=== PATIENT | female | born 1995 | race Caucasian/White ===

== ENCOUNTER 2017-06-30 09:17 | Emergency (ER) | payer BC ==
[~2017-06-30] VITALS: Ht 157.5 cm; Wt 68.0 kg
[2017-06-30 09:18] VITALS: BP 130/83; PULSE 105; RESP 18; TEMP 99.5; O2SAT 97
[2017-06-30] MEDS ORDERED: FLUT1SPR5 EACH NARE (09:38)
--- NOTE | 2017-06-30 09:58 | PD ---
HPI Chief Complaint: Cold / Flu Symptoms Time Seen by Provider: 09:35 Travel History International Travel<30 days: No Contact w/Intl Traveler<30days: No Traveled to known affect area: No History of Present Illness HPI This is a 22-year-old female here with flulike illness times one day. She is reporting body aches, fever, sore throat, cough. Symptoms severity is moderate. No aggravating factors. Slightly improved with OTC Tylenol. PFSH Past Medical History Medical History: Denies Significant Hx Respiratory: Yes (allergies) Integumentary: Yes Tetanus Vaccination: < 5 Years ?: Not LMP: MAY 19, 2017 Past Surgical History Tonsillectomy: Yes Social History Alcohol Use: No Tobacco Use: No Substance Use: No Allergies-Medications (Allergen,Severity, Reaction): Coded Allergies: Sulfa (Sulfonamide Antibiotics) (Verified Allergy, Severe, Nausea/Vomiting , 06/30/17) amoxicillin (Verified Allergy, Severe, Nausea/Vomiting, 06/30/17) azithromycin (Verified Allergy, Severe, Nausea/Vomiting, 06/30/17) cefaclor (Verified Allergy, Severe, Nausea/Vomiting, 06/30/17) cefuroxime (Verified Allergy, Severe, Nausea/Vomiting, 06/30/17) clavulanic acid (Verified Allergy, Severe, Nausea/Vomiting, 06/30/17) sulfamethoxazole (Verified Allergy, Severe, Nausea/Vomiting, 06/30/17) trimethoprim (Verified Allergy, Severe, Nausea/Vomiting, 06/30/17) Reported Meds & Prescriptions Reported Meds & Active Scripts Active Tessalon Perles (Benzonatate) 100 Mg Cap 200 Mg PO TID PRN Proair Hfa 8.5 GM Inh (Albuterol Sulfate) 90 Mcg/Act Aer 2 Puff INH Q4-6H PRN 108 mcg/actuation Prednisone 20 Mg Tab 40 Mg PO DAILY Take 40 mg (2 tablets) daily for 5 days Tamiflu (Oseltamivir Phosphate) 75 Mg Cap 75 Mg PO BID 5 Days Reported Flonase Nasal [place] (Fluticasone Nasal [place]) 50 Mcg/Act [place] 100 Mcg EACH NARE BID Review of Systems Except as stated in HPI: all other systems reviewed are Neg General / Constitutional: Positive: Fever Eyes: No: Visual changes HENT: Positive: Sore Throat, Congestion, No: Headaches Cardiovascular: No: Chest Pain or Discomfort Respiratory: Positive: Cough Gastrointestinal: No: Abdominal Pain Genitourinary: No: Dysuria Skin: No Rash Neurologic: No: Weakness Physical Exam Narrative GENERAL: Alert and well-appearing 22-year-old female. SKIN: Warm and dry. No rash. HEAD: Normocephalic. EYES:No injection or drainage. Ear/nose/throat: Clear nasal discharge. Mild pharyngeal erythema with mild tonsillar hypertrophy and no exudate. Uvula is midline. Airway is patent. NECK: Supple, trachea midline. CARDIOVASCULAR: Regular rate and rhythm RESPIRATORY: Breath sounds equal bilaterally. No accessory muscle use. Rhonchorous cough. GASTROINTESTINAL: Abdomen soft, non-tender, nondistended. MUSCULOSKELETAL: No cyanosis, or edema. BACK: Nontender without obvious deformity. No CVA tenderness. Data Data Last Documented VS Vital Signs Date Time Temp Pulse Resp B/P (MAP) Pulse Ox O2 Delivery O2 Flow Rate FiO2 06/30/17 09:18 99.5 105 18 130/83 (99) 97 Orders Orders Influenzae A/B Antigen (06/30/17 09:49) Ed Discharge Order (06/30/17 10:46) MDM Medical Decision Making Medical Screen Exam Complete: Yes Emergency Medical Condition: Yes Differential Diagnosis Influenza, other viral illness, bronchitis, pneumonia Narrative Course This is a 22-year-old female here with flulike illness. She is nontoxic- appearing. She is positive for influenza B. Diagnosis Primary Impression: Influenza B Referrals: Primary Care Physician Additional Instructions: Tamiflu as directed. Steroids as directed. Albuterol inhaler as directed. Tessalon Perles as directed. Stay well hydrated by drinking plenty of fluids. Take Tylenol or ibuprofen as needed for fever Scripts Benzonatate (Tessalon Perles) 100 Mg Cap 200 MG PO TID Y for COUGH, #12 CAP 0 Refills Prov: Michelle Morgan [employer] 06/30/17 Albuterol 8.5 GM Inh (Proair Hfa 8.5 GM Inh) 90 Mcg/Act Aer 2 PUFF INH Q4-6H Y for SHORTNESS OF BREATH, #1 INHALER 0 Refills 108 mcg/actuation Prov: Michelle Morgan [employer] 06/30/17 Prednisone (Prednisone) 20 Mg Tab 40 MG PO DAILY, #8 TAB 0 Refills Take 40 mg (2 tablets) daily for 5 days Prov: Michelle Morgan 06/30/17 Oseltamivir (Tamiflu) 75 Mg Cap 75 MG PO BID for Mgmt Viral Infection for 5 Days, #10 CAP 0 Refills Prov: Mcihelle Morgan 06/30/17 Disposition: 01 DISCHARGE HOME Condition: Stable Michelle Morgan Jun 30, 2017 09:58
[2017-06-30] MEDS ORDERED: BENZ100 PO (10:40)
[2017-06-30] MEDS ORDERED: PRED20 PO (10:40)
[2017-06-30] MEDS ORDERED: ALBUAER3 INH (10:40)
[2017-06-30] MEDS ORDERED: OSEL75 PO (10:40)
--- NOTE | 2017-06-30 11:17 | RADRPT ---
EXAM DATE/TIME: 06/30/2017 11:13 [facility] COMPARISON: No previous studies available for comparison. INDICATIONS : Cough for 4 days. MEDICAL HISTORY : None. SURGICAL HISTORY : None. ENCOUNTER: Initial ACUITY: 4 - 6 days PAIN SCORE: 1/10 LOCATION: Bilateral chest FINDINGS: PA and lateral views of the chest demonstrate the lungs to be symmetrically aerated without evidence of mass, infiltrate or effusion. The cardiomediastinal contours are unremarkable. Osseous structure s are intact. CONCLUSION: No acute disease. Don Corea MD on June 30, 2017 at 11:14 Board Certified Radiologist. This report was verified electronically.
== END 2017-06-30 11:26 | disposition home or self-care (01) ==
LOC: NEPK 09:17
DX: J10.1 Influenza due to other identified influenza virus with other respiratory manifestations (principal)
CPT/HCPCS: 71046; 87804; 99284